=== PATIENT | male | born 2000 | race Caucasian/White ===

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

== ENCOUNTER 2021-11-22 15:01 | Emergency (ER) | payer BC ==
[~2021-11-22] VITALS: Ht 177.8 cm; Wt 90.7 kg
== END 2021-11-22 16:57 | disposition home or self-care (01) ==
LOC: ER 15:01
DX: S81.042A Puncture wound with foreign body, left knee, initial encounter (principal); W32.0XXA Accidental handgun discharge, initial encounter; Z91.040 Latex allergy status
CPT/HCPCS: 73562-LT; 90714; J0690